=== PATIENT | male | born 1985 | race Two or more races ===

== ENCOUNTER 2024-10-02 17:07 | Emergency (ER) | payer MEDICARE, MEDICAID ==
[~2024-10-02] VITALS: Ht 180.3 cm; Wt 185.0 kg
--- NOTE | 2024-10-02 17:12 | ECG ---
[facility] Test Date: 2024-10-02 Test Time: 17:11:28 Pat Name: ALVIN HAQUE Department: ER Room: Gender: M Taxicab Dispatcher: GP : 1985 Requested By: AMALIA AMANDA Order Number: [id number] Reading MD: Rey Griggs Measurements Intervals [place] Rate: 110 P: 30 [place]: 191 QRS: 43 QRSD: 94 T: 1 QT: 320 QTc: 433 Interpretive Statements Sinus tachycardia Low voltage, precordial leads Borderline repolarization abnormality Baseline wander in lead(s) II,III,aVL,aVF Electronically Signed On 10-02-2024 17:12:51 PDT by Rey Griggs Please click the below link to view image of tracing.
--- NOTE | 2024-10-02 17:44 | ED.PDOC ---
HPI Comments 39 y/o M, with PMhx of anxiety, sleep apnea, and chronic back pain presents to the ED for CC of chest pain. Patient states, that he has been experiencing intermittent left sided non-radiating chest pain with associated shortness of breath x1day. Patient describes, pain to be twitching in nature with associated tenderness to site. Patient reports, that he had a halter placed on Monday (09/27/24). Patient denies palpitations, dizziness, headache, nausea, or vomiting.No other symptoms or modifying factors present at this time. Chief Complaint: Chest Pain Time Seen by MD: 17:40 Primary Care Provider: ANDREINA Reviewed Notes: Nurses Notes, Medications, Allergies Allergies: Coded Allergies: NO KNOWN ALLERGIES (Unverified , 12/01/10) Information Source: Patient Mode of Arrival: Ambulatory Severity: Moderate Timing: Hours Duration: Since onset Prehospital treatment: None Location: Substernal Quality: Sharp, Pressure Modifying Factors: Nothing Associated Signs and Symptoms: SOB Past Medical History PAST MEDICAL HISTORY: Anxiety Surgical History: Denies all surgeries Family History Family History: No family hx of DM, No family hx of HTN, No family hx of Stroke Social History Smoker: Quit Less Than 1 Year Alcohol: Sober Drugs: Marijuana Lives In: Home Constitutional: denies: chills, diaphoresis, fatigue, fever, malaise, sweats, weakness, others EENTM: denies: blurred vision, double vision, ear bleeding, ear discharge, ear drainage, ear pain, ear ringing, eye pain, eye redness, hearing loss, mouth pain, mouth swelling, nasal discharge, nose bleeding, nose congestion, nose p ain, photophobia, tearing, throat pain, throat swelling, voice changes, others Respiratory: reports: shortness of breath; denies: cough, hemoptysis, orthopnea, SOB at rest, SOB with excertion, stridor, wheezing, others Cardiovascular: reports: chest pain; denies: dizzy spells, diaphoresis, Dyspnea on exertion, edema, irregular heart beat, left arm pain, lightheadedness, palpitations, PND, syncope, others Gastrointestinal: denies: abdomen distended, abdominal pain, blood streaked bowels, constipated, diarrhea, dysphagia, difficulty swallowing, hematemesis, melena, nausea, poor appetite, poor fluid intake, rectal bleeding, rectal pain, vomiting, others Genitourinary: denies: burning, dysuria, flank pain, frequency, hematuria, incontinence, penile discharge, penile sore, pain, testicle pain, testicle swelling, urgency, others Neurological: denies: dizziness, fainting, headache, left sided numbness, left sided weakness, numbness, paresthesia, pre-existing deficit, right sided numbness, right sided weakness, seizure, speech problems, tingling, tremors, weakness, others Musculoskeletal: denies: back pain, gout, joint pain, joint swelling, muscle pain, muscle stiffness, neck pain, others Integumetry: denies: bruises, change in color, change in hair/nails, dryness, laceration, lesions, lumps, rash, wounds, others Allergic/Immunocompromised: denies: Difficulty Healing, Frequent Infections, Hives, Itching, others Hematologic/Lymphatic: denies: anemia, blood clots, easy bleeding, easy bruising, swollen glands, others Endocrine: denies: excessive hunger, excessive sweating, excessive thirst, excessive urination, flushing, intolerance to cold, intolerance to heat, unexplained weight gain, unexplained weight loss, others Psychiatric: denies: anxiety, bipolar disorder, depression, hopeless, panic disorder, schizophrenia, sleepless, suicidal, others All Other Systems: Reviewed and Negative Physical Exam General Appearance: Mild Distress HEENT: Normal ENT Inspection, Pharynx Normal, TMs Normal Neck: Full Range of Motion, Non-Tender, Normal, Normal Inspection Respiratory: Lungs Clear, No Accessory Muscle Use, No Respiratory Distress, Normal Breath Sounds, Other (Well localized left chest pain and tender chest wall) Cardiovascular: No Edema, No JVD, No Murmur, No Gallop, Normal Peripheral Pulses, Regular Rate/Rhythm Breast Exam: Deferred Gastrointestinal: No Organomegaly, Non Tender, No Pulsatile Mass, Normal Bowel Sounds, Soft Genitalia: Deferred Pelvic: Deferred Rectal: Deferred Extremities: No calf tenderness, Normal capillary refill, Normal inspection, Normal range of motion, Non-tender, No pedal edema Neurologic: Alert, 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 Was a procedure done?: No CP Differential Dx Differential Diagnosis: Anxiety / Panic Attack, Electrolyte Disorder Differential Diagnosis: HTN Essential Differential Diagnosis: Chest Wall Pain, Costochondritis, Esophageal reflux/spasm, Gastritis, Pneumonia X-Ray, Labs, Meds, VS Vital Signs Date Time Temp Pulse Resp B/P (MAP) Pulse Ox O2 Delivery O2 Flow Rate FiO2 10/02/24 18:24 110 10/02/24 17:26 98.1 108 20 124/84 (97) 93 98.1 10/02/24 17:11 110 Lab Test 10/02/24 18:21 10/02/24 17:19 10/02/24 17:16 Range/Units Troponin I High Sensitivity 3 L < 3 L </=54 ng/L White Blood Count 11.8 H 4.4-10.8 10^3/uL Red Blood Count 4.98 4.5-5.90 10^6/uL Hemoglobin 14.6 13.5-17.5 g/dL Hematocrit 43.1 41.0-53.0 % Mean Corpuscular Volume 86.7 80.0-100.0 fL Mean Corpuscular Hemoglobin 29.3 28.0-32.0 pg Mean Corpuscular Hemoglobin Concent 33.8 32.0-36.0 g/dL Red Cell Distribution Width 14.9 H 11.8-14.3 % Platelet Count 273 140-450 10^3/uL Mean Platelet Volume 8.9 6.9-10.8 fL Neutrophils (%) (Auto) 64.1 37.0-80.0 % Lymphocytes (%) (Auto) 24.2 10.0-50.0 % Monocytes (%) (Auto) 8.4 0.0-12.0 % Eosinophils (%) (Auto) 2.5 0.0-7.0 % Basophils (%) (Auto) 0.8 0.0-2.0 % Neutrophils # (Auto) 7.6 1.6-8.6 10 ^3/uL Lymphocytes # (Auto) 2.8 0.4-5.4 10 ^3/uL Monocytes # (Auto) 1.0 0-1.3 10 ^3/uL Eosinophils # (Auto) 0.3 0-0.8 10 ^3/uL Basophils # (Auto) 0.1 0-0.2 10 ^3/uL Nucleated Red Blood Cells 0.1 % Sodium Level 139 136-145 mmol/L Potassium Level 3.7 3.5-5.1 mmol/L Chloride Level 102 98-107 mmol/L Carbon Dioxide Level 30 20-31 mmol/L Anion Gap 7 5-15 Blood Urea Nitrogen 12 9-23 mg/dL Creatinine 0.88 0.700-1.30 mg/dL Glomerular Filtration Rate Calc 114 >90 mL/min BUN/Creatinine Ratio 13.6 10.0-20.0 Serum Glucose 108 H 74-106 mg/dL Calcium Level 9.9 8.7-10.4 mg/dL Magnesium Level 1.6 1.6-2.6 mg/dL Urine Color Colorless Yellow Urine Clarity Clear Clear Urine pH 6.5 5.0-9.0 Urine Specific [place] 1.004 1.001-1.035 Urine Protein Negative Negative Urine Ketones Negative Negative Urine Blood Negative Negative /uL Urine Nitrite Negative Negative Urine Bilirubin Negative Negative Urine Urobilinogen Normal Negative mg/dL Urine Leukocyte Esterase Negative Negative /uL Urine RBC <1 0 - 3 /hpf Urine Microscopic WBC < 1 0-3 /HPF Urine Squamous Epithelial Cells None seen <5 /hpf Urine Bacteria None seen None Seen /hpf Urine Glucose Normal Normal mg/dL X-Ray, Labs, Meds, VS Comment Course in the emergency department eventful patient came in complaining of chest pain EKG shows sinus tachycardia at 1:10 a.m. Troponin less than three CBC [id number] with 62% neutrophils and normal H&H BNP normal Urine negative Magnesium 1.6 Patient will be discharged home to follow up with his PCP Time of 1ST Reevaluation: 18:20 Reevaluation 1ST: Unchanged Time of 2ND Reevaluation: 19:13 Reevaluation 2ND: Improved Consultation: PCP Patient Education/Counseling: Diagnosis, Treatment, Prognosis, Need For Follow Up Family Education/Counseling: Diagnosis, Treatment, Prognosis, Need For Follow Up, No Family Present Departure 1 Departure Time of Disposition: 19:14 Impression: Primary Impression: Musculoskeletal chest pain Additional Impression: Costochondritis Disposition: 01 HOME / SELF CARE / HOMELESS Condition: Good Additional Instructions: Local heat and follow up with your PCP e-Prescriptions Diclofenac Potassium (Diclofenac Potassium) 50 Mg Tab 1 TAB PO TIDP for 10 Days, #30 TAB Prov: JUSTYN WOOD MD 10/02/24 Discharged With: Self Critical Care Note Critical Care Time?: No Stability Stability form required: No Heart Score Heart Score: Heart Score Response (Comments) Value History N/A 0 EKG N/A 0 Age N/A 0 Risk Factors N/A 0 Troponin N/A 0 Total 0 I personally scribed for JUSTYN WOOD MD ([email or web address]) on 10/02/24 at 17:44. Electronically submitted by Bela Pires ([email or web address]). I personally scribed for JUSTYN WOOD MD ([email or web address]) on 10/02/24 at 17:59. Electronically submitted by Bela Pires ([email or web address]). I personally scribed for JUSTYN WOOD MD ([email or web address]) on 10/02/24 at 18:13. Electronically submitted by Bela Pires ([email or web address]). JUSTYN WOOD MD Oct 02, 2024 17:44
[2024-10-02 18:41] LABS: Basophils # (auto) 0.1 10 ^3/uL (0-0.2); Basophils % (auto) 0.8 % (0.0-2.0); Eosinophils # (auto) 0.3 10 ^3/uL (0-0.8); Eosinophils % (auto) 2.5 % (0.0-7.0); Hematocrit 43.1 % (41.0-53.0); Hemoglobin 14.6 g/dL (13.5-17.5); Lymphocytes # (auto) 2.8 10 ^3/uL (0.4-5.4); Lymphocytes % (auto) 24.2 % (10.0-50.0); Mean Corpuscular Hemoglobin 29.3 pg (28.0-32.0); Mean Corpuscular Hgb Conc. 33.8 g/dL (32.0-36.0); Mean Corpuscular Volume 86.7 fL (80.0-100.0); Monocytes % (auto) 8.4 % (0.0-12.0); Neutrophils # (auto) 7.6 10 ^3/uL (1.6-8.6); Neutrophils % (auto) 64.1 % (37.0-80.0); Nucleated Red Blood Cells % 0.1 %; Platelet Count (auto) 273 10^3/uL (140-450); Red Blood Cells 4.98 10^6/uL (4.5-5.90); Red Cell Distribution Width 14.9 % (11.8-14.3); White Blood Cell 11.8 10^3/uL (4.4-10.8)
[2024-10-02 18:44] LABS: Chloride 102 mmol/L (98-107); Potassium 3.7 mmol/L (3.5-5.1); Sodium 139 mmol/L (136-145)
[2024-10-02 18:45] LABS: Anion Gap 7 (5-15); Calcium 9.9 mg/dL (8.7-10.4); Carbon Dioxide 30 mmol/L (20-31)
[2024-10-02 18:49] LABS: Urine Bacteria None Seen /hpf (None Seen)
[2024-10-02 18:50] LABS: BUN/Creatinine Ratio 13.6 (10.0-20.0); Blood Urea Nitrogen 12 mg/dL (9-23); Magnesium 1.6 mg/dL (1.6-2.6)
[2024-10-02 18:56] LABS: Glucose 108 mg/dL (74-106)
[2024-10-02 18:59] LABS: Urine Blood Negative /uL (Negative); Urine Clarity Clear (Clear); Urine Color Colorless (Yellow); Urine Protein, UAD Negative (Negative); Urine Specific Gravity 1.004 (1.001-1.035); Urine Squamous Epithelial Cell None Seen /hpf (<5); Urine Urobilinogen Normal (Negative); Urine pH 6.5 (5.0-9.0)
[2024-10-02 19:01] LABS: Urine WBC < 1 /HPF (0-3)
[2024-10-02] MEDS ORDERED: DICL50TA2 PO (19:18)
[2024-10-02 20:20] VITALS: BP 167/79; PULSE 101; RESP 18; TEMP 98.6; O2SAT 98
[2024-10-02] MEDS: SODIUM CHLORIDE 0.9% 1,000 ML IV ONE (20:20)
[2024-10-02] MEDS: KETOROLAC TROMETH 60MG/2ML VIAL IM ONE (20:20)
== END 2024-10-02 20:28 | disposition home or self-care (01) ==
LOC: ER 17:13
DX: R07.89 Other chest pain (principal); M94.0 Chondrocostal junction syndrome [Tietze]; F41.9 Anxiety disorder, unspecified; F12.90 Cannabis use, unspecified, uncomplicated; G89.29 Other chronic pain; Z79.899 Other long term (current) drug therapy
CPT/HCPCS: 36415; 80048; 81001; 83735; 84484; 85025; 93005

== ENCOUNTER 2024-12-04 13:01 | Emergency (ER) | payer MEDICAID ==
[~2024-12-04] VITALS: Ht 180.3 cm; Wt 188.9 kg
[~2024-12-04 13:01] MED LIST: DICL50TA2 PO
[2024-12-04 13:40] VITALS: TEMP 98.6
--- NOTE | 2024-12-04 14:05 | ED.PDOC ---
HPI Comments 39y M who presents to the ED for chief complaint of chest pain. Pt states he was doing yard outside approx 1x hours prior and states he started to have chest pain. Pt states his chest pain was located by R side of chest, pressure like in nature, intermittent, non-radiating, with no associated exacerbating or relieving factors. Pt states the chest pain lasted for approx 10-15 seconds but states he started to have intermittent chest pain episodes and came to the ED for further evaluation. Pt in the ED, otherwise denies any other symptoms at this time. Chief Complaint: Chest Pain Time Seen by MD: 14:02 Primary Care Provider: ANDREINA Reviewed Notes: Medications, Allergies Allergies: Coded Allergies: NO KNOWN ALLERGIES (Unverified , 12/01/10) Home Meds Active Scripts Diclofenac Potassium (Diclofenac Potassium) 50 Mg Tab, 1 TAB PO TIDP for 10 D ays, #30 TAB Prov:JUSTYN WOOD MD 10/02/24 Information Source: Patient Mode of Arrival: Ambulatory Brought in by: self Severity: Moderate Timing: Hours Duration: Since onset Prehospital treatment: None Location: Chest (R) Radiation: No Radiation Quality: Sharp, Pressure Onset: At Rest Cardiac Risk Factors: None PE Risk Factors: None History of: None Modifying Factors: Nothing Associated Signs and Symptoms: SOB Past Medical History PAST MEDICAL HISTORY: Anxiety Surgical History: Denies all surgeries Family History Family History: No family hx of DM, No family hx of HTN, No family hx of Stroke , Family hx of DM Social History Smoker: Quit Less Than 1 Year Alcohol: Sober Drugs: Marijuana Lives In: Home Constitutional: denies: chills, diaphoresis, fatigue, fever, malaise, sweats, weakness, others EENTM: denies: blurred vision, double vision, ear bleeding, ear discharge, ear drainage, ear pain, ear ringing, eye pain, eye redness, hearing loss, mouth pain, mouth swelling, nasal discharge, nose bleeding, nose congestion, nose pain, photophobia, tearing, throat pain, throat swelling, voice changes, others Respiratory: reports: shortness of breath; denies: cough, hemoptysis, orthopnea, SOB at rest, SOB with excertion, stridor, wheezing, others Cardiovascular: reports: chest pain; denies: dizzy spells, diaphoresis, Dyspnea on exertion, edema, irregular heart beat, left arm pain, lightheadedness, palpitations, PND, syncope, others Gastrointestinal: denies: abdomen distended, abdominal pain, blood streaked bowels, constipated, diarrhea, dysphagia, difficulty swallowing, hematemesis, melena, nausea, poor appetite, poor fluid intake, rectal bleeding, rectal pain, vomiting, others Genitourinary: denies: burning, dysuria, flank pain, frequency, hematuria, incontinence, penile discharge, penile sore, pain, testicle pain, testicle swelling, urgency, others Neurological: denies: dizziness, fainting, headache, left sided numbness, left sided weakness, numbness, paresthesia, pre-existing deficit, right sided numbness, right sided weakness, seizure, speech problems, tingling, tremors, weakness, others Musculoskeletal: denies: back pain, gout, joint pain, joint swelling, muscle pain, muscle stiffness, neck pain, others Integumetry: denies: bruises, change in color, change in hair/nails, dryness, laceration, lesions, lumps, rash, wounds, others Allergic/Immunocompromised: denies: Difficulty Healing, Frequent Infections, Hives, Itching, others Hematologic/Lymphatic: denies: anemia, blood clots, easy bleeding, easy bruising, swollen glands, others Endocrine: denies: excessive hunger, excessive sweating, excessive thirst, excessive urination, flushing, intolerance to cold, intolerance to heat, unexplained weight gain, unexplained weight loss, others Psychiatric: denies: anxiety, bipolar disorder, depression, hopeless, panic disorder, schizophrenia, sleepless, suicidal, others All Other Systems: Reviewed and Negative Physical Exam General Appearance: No Apparent Distress, Obese HEENT: Normal ENT Inspection, Pharynx Normal, TMs Normal Neck: Full Range of Motion, Non-Tender, Normal, Normal Inspection Respiratory: Chest Non-Tender, Lungs Clear, No Accessory Muscle Use, No Respiratory Distress, Normal Breath Sounds Cardiovascular: No Edema, No JVD, No Murmur, No Gallop, Normal Peripheral Pulses, Regular Rate/Rhythm Breast Exam: Deferred Gastrointestinal: No Organomegaly, Non Tender, No Pulsatile Mass, Normal Bowel Sounds, Soft Genitalia: Deferred Pelvic: Deferred Rectal: Deferred Extremities: No calf tenderness, Normal capillary refill, Normal inspection, Normal range of motion, Non-tender, No pedal edema Musculoskeletal : Apperance: Normal Neurologic: Alert, 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 Was a procedure done?: No CP Differential Dx Differential Diagnosis: Angina, Anxiety / Panic Attack Differential Diagnosis: Chest Wall Pain, Cholelithiasis, Costochondritis, Esophageal reflux/spasm, Pericarditis, Pneumonia X-Ray, Labs, Meds, VS Vital Signs Date Time Temp Pulse Resp B/P (MAP) Pulse Ox O2 Delivery O2 Flow Rate FiO2 12/04/24 16:21 70 20 129/96 (107) 98 12/04/24 16:21 70 18 98 Room Air 12/04/24 15:45 106 12/04/24 14:05 84 12/04/24 13:50 84 12/04/24 13:40 98.6 94 18 122/86 (98) 97 98.6 Lab Test 12/04/24 14:50 12/04/24 14:20 12/04/24 13:58 Range/Units Troponin I High Sensitivity < 3 L < 3 L </=54 ng/L POC Glucose 148 H 70-106 mg/dl White Blood Count 12.4 H 4.4-10.8 10^3/uL Red Blood Count 4.98 4.5-5.90 10^6/uL Hemoglobin 14.7 13.5-17.5 g/dL Hematocrit 44.5 41.0-53.0 % Mean Corpuscular Volume 89.3 80.0-100.0 fL Mean Corpuscular Hemoglobin 29.5 28.0-32.0 pg Mean Corpuscular Hemoglobin Concent 33.0 32.0-36.0 g/dL Red Cell Distribution Width 15.1 H 11.8-14.3 % Platelet Count 252 140-450 10^3/uL Mean Platelet Volume 8.4 6.9-10.8 fL Neutrophils (%) (Auto) 67.9 37.0-80.0 % Lymphocytes (%) (Auto) 21.9 10.0-50.0 % Monocytes (%) (Auto) 7.7 0.0-12.0 % Eosinophils (%) (Auto) 1.8 0.0-7.0 % Basophils (%) (Auto) 0.7 0.0-2.0 % Neutrophils # (Auto) 8.4 1.6-8.6 10 ^3/uL Lymphocytes # (Auto) 2.7 0.4-5.4 10 ^3/uL Monocytes # (Auto) 0.9 0-1.3 10 ^3/uL Eosinophils # (Auto) 0.2 0-0.8 10 ^3/uL Basophils # (Auto) 0.1 0-0.2 10 ^3/uL Nucleated Red Blood Cells 0.2 % Sodium Level 138 136-145 mmol/L Potassium Level 4.0 3.5-5.1 mmol/L Chloride Level 102 98-107 mmol/L Carbon Dioxide Level 27 20-31 mmol/L Anion Gap 9 5-15 Blood Urea Nitrogen 10 9-23 mg/dL Creatinine 0.87 0.700-1.30 mg/dL Glomerular Filtration Rate Calc 114 >90 mL/min BUN/Creatinine Ratio 11.5 10.0-20.0 Serum Glucose 91 74-106 mg/dL Calcium Level 9.7 8.7-10.4 mg/dL Current Medications Medications (Trade) Dose Ordered Sig/Sandie Route Start Time Stop Time Status Last Admin Aspirin 162 mg ONCE ONCE PO 12/04/24 15:45 12/04/24 15:46 DC 12/04/24 16:07 Belladonna Alkaloids/ Phenobarbital ( Elixir) 10 ml ONCE ONCE PO 12/04/24 16:15 12/04/24 16:16 DC 12/04/24 16:20 Al Hydrox/Mg Hydrox/Simethicone (Maalox Plus) 30 ml ONCE ONCE PO 12/04/24 16:15 12/04/24 16:16 DC 12/04/24 16:19 Lidocaine HCl (Xylocaine 2% Viscous) 15 ml ONCE ONCE PO 12/04/24 16:15 12/04/24 16:16 DC 12/04/24 16:19 The patient's CBC shows an elevated white blood cell count of 12.4 The rest of the CBC is within normal limits The chemistry panel is within normal limits The patient was given aspirin 162 mg by mouth The patient was complaining of some indigestion so was given a GI cocktail The patient has a troponin x2 is negative The patient is being discharged with a diagnosis of atypical chest pain and costochondritis Images Reviewed?: Images reviewed and evaluated by me Time of 1ST Reevaluation: 14:35 Reevaluation 1ST: Unchanged Patient Education/Counseling: Diagnosis, Treatment, Prognosis, Need For Follow Up Family Education/Counseling: No Family Present SEPSIS Sepsis Screen Physician Orders Electrocardigram (12/04/24 14:50) Electrocardigram (12/04/24 16:50) Chest Two Views Routine (12/04/24 15:34) Vital Signs Date Time Temp Pulse Resp B/P (MAP) Pulse Ox O2 Delivery O2 Flow Rate FiO2 12/04/24 16:21 70 20 129/96 (107) 98 12/04/24 16:21 70 18 98 Room Air 12/04/24 15:45 106 12/04/24 14:05 84 12/04/24 13:50 84 12/04/24 13:40 98.6 94 18 122/86 (98) 97 98.6 Laboratory Tests Test 12/04/24 13:58 White Blood Count 12.4 10^3/uL (4.4-10.8) H Medications Medications Dose Ordered Sig/Sandie Route Start Time Stop Time Status Last Admin Dose Admin Al Hydrox/Mg Hydrox/Simethicone 30 ml ONCE ONCE PO 12/04/24 16:15 12/04/24 16:16 DC 12/04/24 16:19 Aspirin 162 mg ONCE ONCE PO 12/04/24 15:45 12/04/24 15:46 DC 12/04/24 16:07 Belladonna Alkaloids/ Phenobarbital 10 ml ONCE ONCE PO 12/04/24 16:15 12/04/24 16:16 DC 12/04/24 16:20 Lidocaine HCl 15 ml ONCE ONCE PO 12/04/24 16:15 12/04/24 16:16 DC 12/04/24 16:19 Departure 1 Departure Time of Disposition: 16:32 Impression: Primary Impression: Costochondritis Disposition: 01 HOME / SELF CARE / HOMELESS Condition: Fair Discharged With: Self Critical Care Note Critical Care Time?: No Stability Stability form required: No Heart Score Heart Score: Heart Score Response (Comments) Value History Slightly Suspicious 0 EKG Normal 0 Age <45 0 Risk Factors No known risk factors 0 Troponin Normal limit 0 Total 0 I personally scribed for APRYL MALONEY MD ([email or web address]) on 12/04/24 at 14:04. Electronically submitted by Reynaldo Dorsey ([email or web address]). APRYL MALONEY MD Dec 04, 2024 14:04
--- NOTE | 2024-12-04 15:46 | ECG ---
[facility] Test Date: 2024-12-04 Test Time: 15:45:35 Pat Name: ALVIN HAQUE Department: ER Room: Gender: M Ux Lead: GP : 1985 Requested By: APRYL MALONEY Order Number: [id number] Reading MD: Rey Griggs Measurements Intervals [place] Rate: 106 P: 14 [place]: 170 QRS: 20 QRSD: 90 T: -3 QT: 327 QTc: 435 Interpretive Statements Sinus tachycardia Multiple ventricular premature complexes Borderline T abnormalities, diffuse leads Baseline wander in lead(s) II,V2,V3,V5 Electronically Signed On 12-06-2024 10:22:55 PDT by Rey Griggs Please click the below link to view image of tracing.
[2024-12-04 15:47] LABS: Hematocrit 44.5 % (41.0-53.0); Hemoglobin 14.7 g/dL (13.5-17.5); Mean Corpuscular Hemoglobin 29.5 pg (28.0-32.0); Mean Corpuscular Volume 89.3 fL (80.0-100.0); Nucleated Red Blood Cells % 0.2 %
[2024-12-04 15:52] LABS: Chloride 102 mmol/L (98-107); Potassium 4.0 mmol/L (3.5-5.1); Sodium 138 mmol/L (136-145)
[2024-12-04 15:53] LABS: Anion Gap 9 (5-15); Calcium 9.7 mg/dL (8.7-10.4); Carbon Dioxide 27 mmol/L (20-31)
[2024-12-04 15:58] LABS: BUN/Creatinine Ratio 11.5 (10.0-20.0); Blood Urea Nitrogen 10 mg/dL (9-23); Glucose 91 mg/dL (74-106)
--- NOTE | 2024-12-04 16:18 | DVH ---
CHEST RADIOGRAPH Indication: cp Technique: Frontal and lateral view of the chest was obtained Comparison: None FINDINGS: Lines and Tubes: None Lungs: Clear Pleura: No effusion. No pneumothorax. Cardiomediastinal contours: Unremarkable Bones: Unremarkable IMPRESSION: No evidence of acute disease.
[2024-12-04] MEDS: LIDOCAINE VISCOUS 2% 15ML UD PO ONE (16:19)
[2024-12-04] MEDS: MAALOX PLUS or MAALOX 30 ML PO ONE (16:19)
[2024-12-04] MEDS: DONNATAL 5ml ORAL Elix (BELLADONNA ALK-PHENOBARB) PO ONE (16:20)
[2024-12-04 16:21] VITALS: BP 129/96; PULSE 70; RESP 18; O2SAT 98
--- NOTE | 2024-12-04 19:27 | ECG ---
[facility] Test Date: 2024-12-04 Test Time: 13:50:19 Pat Name: ALVIN HAQUE Department: ER Room: Gender: M Guard Sergeant: : 1985 Requested By: APRYL MALONEY Order Number: [id number] Reading MD: Rey Griggs Measurements Intervals [place] Rate: 84 P: 6 MD: 191 QRS: 57 QRSD: 88 T: 4 QT: 352 QTc: 417 Interpretive Statements Sinus rhythm Electronically Signed On 12-06-2024 10:22:37 PDT by Rey Griggs Please click the below link to view image of tracing.
== END 2024-12-04 16:37 | disposition home or self-care (01) ==
LOC: ER 13:01
DX: M94.0 Chondrocostal junction syndrome [Tietze] (principal); F41.9 Anxiety disorder, unspecified; F12.90 Cannabis use, unspecified, uncomplicated; Z79.899 Other long term (current) drug therapy
CPT/HCPCS: 36415; 71046; 80048; 82947; 82962; 84484; 85025; 93005